=== PATIENT | female | born 1965 | race Two or more races ===

== ENCOUNTER → 2025-06-10 | Outpatient (CLI) | payer MEDICAID, SELFPAY ==
--- NOTE | 2025-06-10 08:45 | XR_ITS ---
Examination: Screening digital mammography, bilateral Computer aided detection 3-D breast Tomosynthesis, bilateral Date and time of exam: 06/10/2025, 8:19 AM Comparisons: December 2021 through April 2024 Indications: Screening, right breast pain x6 months Technique: Nonmagnified MLO, CC views of the breasts to been obtained, reconstructed from 3-D Tomosynthesis images. R2 computer aided detection program utilized for evaluation of suspicious masses and/or abnormal calcifications. 3-D Tomosynthesis images obtained. Technologist: Findings: The breasts are heterogeneously dense, which may obscure small masses. No evidence of abnormal masses or suspicious calcifications. Right postbiopsy marker clip. Impression:: No focal mammographic abnormality. Recommend diagnostic mammogram and ultrasound of the right breast with spot tomographic views of the area of pain. BI-RADS category 0: Incomplete assessment; need additional imaging evaluation
== END | disposition home or self-care (01) ==
LOC: CDIM 08:11
PROVIDERS: Referring Provider Family Medicine; Visit Provider Family Medicine
DX: Z12.31 Encounter for screening mammogram for malignant neoplasm of breast (principal); R92.8 Other abnormal and inconclusive findings on diagnostic imaging of breast
CPT/HCPCS: 77063; 77067

== ENCOUNTER 2025-06-28 03:24 | Emergency (ER) | payer MEDICAID, SELFPAY ==
[2025-06-28 03:25] VITALS: BP 175/98; PULSE 76; RESP 19; TEMP 36.6; O2SAT 100; BMI 27.8
--- NOTE | 2025-06-28 03:45 | XR_ITS ---
Examination: CT abdomen and pelvis without contrast. Coronal 3-D reconstructions. Sagittal 2-D reconstructions. Date and time of exam:June 28, 2025, 0401 hrs. Indications: Lower abdominal pain today, history kidney stones CTDI: vol (mGy): 8.66 DLP: (mGycm): 518 Technique: Axial images of the abdomen have been obtained, 3 mm slice thickness Intravenous contrast material has not been administered. Low dose protocols were performed. One or more of the following dose reduction techniques were used; automated exposure control, adjustment of the mA and/or KV according to patient size, use of iterative reconstruction technique. Findings: No focal liver or splenic lesions No gallstones No pancreatic or adrenal mass. No renal or ureteral calculi, no hydronephrosis Aorta normal size Normal appendix Mild acute diverticulitis junction descending colon and sigmoid colon No peridiverticular abscess Contracted urinary bladder with minimal urinary bladder wall thickening Impression: Mild acute diverticulitis junction descending colon and sigmoid colon, no peridiverticular abscess
--- NOTE | 2025-06-28 03:45 | PD.EDRME ---
Rapid Medical Screening Exam RME Arrival date/time: 06/28/25 03:24 This is a case of 60-year-old female with no medical history came in in the emergency room due to abdominal pain radiating to the flank pain with painful urination and blood in the urine today persistence of the symptoms this patient decided to start consulted in the emergency room Chief Complaint: Urogenital-Female Time Seen by Provider: 06/28/25 03:45 Vital signs: Vital Signs Temperature 97.8 F 06/28/25 03:25 Pulse Rate 76 06/28/25 03:25 Respiratory Rate 19 06/28/25 03:25 Blood Pressure 175/98 H 06/28/25 03:25 Pulse Oximetry (%) 100 06/28/25 03:25 Oxygen Delivery Method Room Air 06/28/25 03:25
[2025-06-28 04:06] LABS: Basophils # (Auto) 0.1 Thou/mm3 (0.0-0.2); Basophils % (Auto) 0 % (0-2.5); Eosinophils # (Auto) 0.1 Thou/mm3 (0.0-0.5); Eosinophils % (Auto) 0 % (0-10); Hematocrit 42.3 % (36.0-46.0); Hemoglobin 14.5 g/dL (12.0-16.0); Immature Granulocytes Auto 0.07 Thou/mm3 (0.00-0.00); Lymphocytes # (Auto) 2.6 Thou/mm3 (1.0-4.8); Lymphocytes % (Auto) 15 % (10-50); Mean Corpuscular HGB Conc 34.3 g/dl (31.0-37.0); Mean Corpuscular Hemoglobin 29.5 pg (25.0-35.0); Mean Corpuscular Volume 86 fL (80-100); Monocytes # (Auto) 1.3 Thou/mm3 (0.0-0.8); Monocytes % (Auto) 8 % (0-12); Neutrophils # (Auto) 13.0 Thou/mm3 (1.8-7.7); Neutrophils % (Auto) 76 % (37-80); Nucleated Red Blood Cell # 0.00 Thou/mm3 (0.00-0.00); Nucleated Red Blood Cell % 0 /100 WBC (0); Platelet Count 285 Thou/mm3 (140-440); RDW Standard Deviation 43.6 fL (36.4-46.3); Red Blood Count 4.91 Miln/mm3 (4.00-5.20); White Blood Count 17.1 Thou/mm3 (3.6-11.0)
[2025-06-28 04:25] LABS: Alanine Aminotransferase 14 U/L (10-49); Albumin, Serum 4.5 gm/dL (3.4-4.8); Albumin/Globulin Ratio 1.8 (1.2-2.2); Alkaline Phosphatase 120 U/L (46-116); Amylase 81 U/L (30-118); Anion Gap 8 (7-16); Aspartate Amino Transferase 15 U/L (0-34); BUN/Creatinine Ratio 11 Ratio (12-20); Bilirubin,Total 0.5 mg/dL (0.3-1.2); Blood Urea Nitrogen 9 mg/dL (9-23); Calcium 9.3 mg/dL (8.3-10.6); Calcium (Corrected) 9.3 mg/dL (8.5-10.1); Carbon Dioxide 27.7 mMol/L (20.0-31.0); Chloride 102 mMol/L (98-107); Creatinine (Component) 0.8 mg/dL (0.6-1.3); Estimated Creatinine Clearance 75.2 mL/min (>60); Globulin 2.5 gm/dL (2.3-3.5); Glucose 108 mg/dL (74-106); Osmolality,Calculated 275 (275-295); Potassium 4.0 mMol/L (3.4-5.1); Sodium 138 mMol/L (136-145); Total Protein 7.0 gm/dL (5.7-8.2); eGFR > 60 See Note
[2025-06-28 05:14] LABS: Collection Type, Urine Clean Catch; Squamous Epithelial Cell,Urine 0 /hpf (0-5)
[2025-06-28 05:23] LABS: Bilirubin,Urine Negative (Negative); Blood,Urine 3+ (Negative); Clarity,Urine Turbid (Clear/Hazy); Color,Urine Lt-Brown (Lt Yel-Yel); Glucose, Urine Negative (Negative); Ketones,Urine Negative (Negative); Leukocyte Esterase,Urine Positive (Negative); Nitrite,Urine Negative (Negative); PH,Urine 6.5 (5.0-7.0); Protein,Urine 1+ (Neg - Trace); RBC,Urine 15 /hpf (0-3); Specific Gravity,Urine 1.006 (1.001-1.035); Urobilinogen,Urine Negative mg/dL (0.0-1.0); WBC,Urine 568 /hpf (0-5)
--- NOTE | 2025-06-28 05:31 | PRELIM_ITS ---
CT scan of the abdomen and pelvis without intravenous contrast (axial sections with sagittal and coronal reformats) June 28, 2025 0401 hours Clinical History: Kidney stone. Comparison: None available at the time of this report. Findings: The lung bases are clear. The liver, gallbladder, pancreas, spleen, kidneys and adrenals are unremarkable on this noncontrast study. No evidence of bowel obstruction. The appendix is within normal limits. There is no mesenteric or retroperitoneal adenopathy. The urinary bladder is nondistended, limited ablation, probable thickening of the urinary bladder wall. There is no free fluid or free air. Focal thickening of the sigmoid colon associated with peripheral fat stranding, no perforation, no collections. Diverticulosis of the colon. Degenerative changes of the imaged portions of the spine. No acute fractures. Impression: Acute diverticulitis of the sigmoid colon. Possible cystitis. No evidence of kidney or ureteral stones. Report Electronically Signed By: Juancarlos Farrell 06/28/2025 5:30:07 AM [EST]
[2025-06-28 06:04] VITALS: BP 164/86; PULSE 76; RESP 17; O2SAT 96
[2025-06-28] MEDS: MORPHINE SULF INJ 4 MG/ML VIAL 2 MG IVP (06:42)
[2025-06-28] MEDS: RINGERS LACTATED 1000 ML 1,000 ML 999 ML IV (06:43)
--- NOTE | 2025-06-28 06:56 | EDNOTE_ITS ---
<Statement entered by Suzie Enciso MD - 06/28/25 15:15> I, Suzie Enciso MD, have reviewed the history, exam, and assessment of the patient. I have evaluated the patient independently and agree with the plan of care documented by [ ]. All diagnostic studies were reviewed and discussed. I confirm the diagnosis as documented by the Resident. I was present during the Medical Decision Making for this patient. The patient's plan of care was created between myself and the Resident and consistent with our discussion of the patient's case. ED Female Urogenital RME/HPI General Chief complaint: Urogenital-Female Stated complaint: URINATING BLOOD Time Seen by Provider: 06/28/25 03:45 Arrival date/time: 06/28/25 03:24 RME / HPI RME / HPI Narrative: 06/28/25 03:24 This is a case of 60-year-old female with no medical history came in in the emergency room due to abdominal pain radiating to the flank pain with painful urination and blood in the urine today persistence of the symptoms this patient decided to start consulted in the emergency room Ms Evangelista is a 60-year-old female with PMH of Hypothyroidism, Hypertension, Hyperlipidemia and diverticulitis in the past presented to [facility] [place] emergency department with a chief complaint of abdominal pain, patient describes her pain to be in the left mid and lower quadrant does report that the pain radiates down to her groin and also complains of some burning pain on micturition, she reported her pain started earlier in the day today and progressively got worse and she decided to come to emergency department for further evaluation. She does endorse constipation at times however reports that she takes rvaf-[id number] fiber for her symptoms. She denies any nausea, vomiting, diarrhea, headache, chest pain, shortness of breath, palpitations and dizziness. Related Data Home Medications ?Medication ?Instructions ?Recorded ?Confirmed simvastatin 10 mg tablet 20 mg PO HS High Cholesterol ##30 10/06/14 05/12/21 levothyroxine 88 mcg capsule 88 mcg PO QDAY 05/05/19 0 05/12/21 gabapentin 600 mg tablet 800 mg PO TID 05/10/2005/12 lisinopril 10 10 tab PO QAM 05/12/2105/12 mg-hydrochlorothiazide 12.5 mg tablet omeprazole 20 mg tablet,delayed 20 mg PO QAM 05/12/21 05/12/21 release Previous Rx's ?Medication ?Instructions ?Recorded azithromycin 250 mg tablet See Rx Instructions PO .COM PLEX #6 05/13/21 tabs ciprofloxacin HCl 500 mg tablet 500 mg PO BID #20 tabs 03/03/22 (Cipro) metronidazole 500 mg tablet 500 mg PO TID #21 tabs metronidazole 500 mg tablet 500 mg PO Q8H #30 tabs 12/06 ciprofloxacin HCl 500 mg tablet 500 mg PO BID #20 tabs 09/12/23 (Cipro) ciprofloxacin HCl 500 mg tablet 500 mg PO Q12H Acute 0 06/28/25 Diverticulitis 10 days #20 tabs metronidazole 500 mg tablet 500 mg PO Q8H Acute Divert iculitis 06/28/25 10 days #30 tabs Allergies Allergy/AdvReac Type Severity Reaction Status Date / Time naproxen (From Naprosyn) Allergy Gastrointestinal Verified 06/28/25 03:25 Upset Review of Systems Review of Systems Systems Reviewed: All systems reviewed, normal except as documented Past Medical History Past Medical History NEUROLOGIC: Positive Neurological Disorders and Migraine; Negative Seizures CARDIAC: Positive Angina, Hypercholesterolemia and Hypertension; Negative Cardiac Disorders or Congestive Heart Failure RESPIRATORY: Positive Asthma; Negative Chronic Obstructive Pulmonary Disease (COPD) GASTROINTESTINAL: Positive Gastrointestinal Disorders, Colitis, Hiatal Hernia and Gastroesophageal Reflux Disease GENITOURINARY: Negative Genitourinary Disorders or Renal Disease REPRODUCTIVE: Positive Previous Pregnancies MUSCULOSKELETAL: Positive Musculoskeletal Disorders and Arthritis ENDOCRINE: Positive Endocrine Disorders and Hypothyroidism; Negative Diabetes Mellitus Type 1 or Diabetes Mellitus Type 2 HEMATOLOGIC: Negative Blood Disorders or Sickle Cell Disease OTHER HISTORY: Positive Chicken Pox, Measles and Mumps; Negative Autoimmune Disease, Blood Transfusions, Blood Transfusion Reaction or Anesthesia Reactions Family History FAMILY HISTORY: Positive Family Respiratory Disorders, Family Cardiac Disorders and Family Cancer; Negative Family Psychiatric Problems, Family Gastrointestinal Problems, Family Surgery or Family Anesthesia Reaction Surgical History SURGICAL: Positive Lumpectomy, Hysterectomy and Section Social History SMOKING STATUS: Never smoker ED Exam Narrative Physical exam: Physical Exam General: Awake and in no acute distress. Conversational and non-toxic appearing. HEENT: Normocephalic, atraumatic, mucous membranes moist. Heart: Regular rate and rhythm, no murmurs. Lungs: Clear to auscultation with no wheezing or crackles. Abdomen: Soft, nondistended, significant tenderness left lower quadrant, positive bowel sounds. ?No guarding or rebound tenderness. Neurologic: Alert and oriented x3, no gross neurological deficit, and patient able to move all 4 extremities. Extremities: No edema. Skin: No rash or ecchymoses. Course Course Course Narrative: Workup done in triage, seen in room 06. Labs reviewed CBC: WBC 17.1, hemoglobin 14.5, platelet count 285, neutrophilia noted neutrophil 13,000. CMP: Sodium 138, potassium 4.0, chloride 102, bicarb 27.7, BUN 9, creatinine 0.8, GFR greater than 60, glucose 108, lactate 1.8, calcium 9.3, AST 15, ALT 14, alk phos 120, protein 7.0, albumin 4.5, amylase 81, Pro-Robbin 0.05. Urinalysis: Color light brown, turbid urine, protein 1+, blood 3+, RBC 15, WBC 568, leukocyte esterase positive, bacteria none Patient will be given morphine 2 mg x 1, 1 L LR bolus, IV Cipro and Flagyl x [address] abdomen pelvis without contrast ordered Results: Mild acute diverticulitis junction descending colon and sigmoid colon no peridiverticular abscess Reviewed patient's chart patient has been diagnosed with diverticulitis fourth time, did follow-up with a surgeon in the past. Patient's pain has improved patient is ambulating. Discussed with patient, patient agreeable to discharge home on Cipro and Flagyl, discharge instructions provided as below. Quality Measures none Orders Category Date Time Status CT abdomen pelvis wo con Stat Exams 06/28/25 03:45 Completed Amylase Stat Lab 06/28/25 03:55 Completed Blood Culture (Lab) Stat Lab 06/28/25 07:10 Received CBC Stat Lab 06/28/25 03:55 Completed Comprehensive Metabolic Panel Stat Lab 06/28/25 03:55 Completed Lactate (Lactic Acid) Stat Lab 06/28/25 07:19 Completed Procalcitonin Stat Lab 06/28/25 07:19 Completed Urinalysis Stat Lab 06/28/25 04:22 Completed Acetaminophen Tab [Tylenol ES Tab] Med 06/28/25 08:56 Discontinued 500 mg PO X1 ONE CIPROFLOXACIN/D5w 400 MG IVPB [Cipro Ivpb] Med 06/28/25 06:24 Discontinued 400 mg in 200 ml IV X1 Morphine* Inj Med 06/28/25 06:22 Discontinued 2 mg IVP X1 ONE Ringers Lactated 1000 ml [Lactated Ringers] 1,000 ml Med 06/28/25 06:23 Discontinued IV 999 mls/hr metroNIDAZOLE/NS 500 MG IVPB [Flagyl 500 mg IV] Med 06/28/25 06:24 Discontinued 500 mg in 100 ml IV X1 Vital Signs Vital signs: Vital Signs Temperature 97.8 F 06/28/25 03:25 Pulse Rate 76 06/28/25 03:25 Respiratory Rate 19 06/28/25 03:25 Blood Pressure 175/98 H 06/28/25 03:25 Pulse Oximetry (%) 100 06/28/25 03:25 Oxygen Delivery Method Room Air 06/28/25 03:25 Urogenital - Female MDM Narrative MDM Narrative:: 60-year-old female came in with a chief complaint of abdominal pain dysuria and hematuria #Acute colonic diverticulitis #Urinary tract infection Patient presented with chief complaint of abdominal pain, maddison hematuria and burning pain on micturition. CT abdomen pelvis showed mild acute diverticulitis junction descending colon and sigmoid colon no peridiverticular abscess White count elevated WBC 17.1 otherwise lactate negative vital stable Blood cultures ordered Patient established with general surgery outpatient, was seen by surgeon in the past. Patient will be discharged home Cipro and Flagyl for 10 days Patient to complete antibiotic treatment other discharge instructions as below, clear liquid diet advance as tolerated Patient provided information at bedside. Case discussed with Attending Physician Dr. Zaria Thomas MD Internal Medicine PGY-2 Disclaimer: This note was dictated by speech recognition. Minor errors in trans cription may be present due to voice recognition software. Patient data External records reviewed:: [facility] previous records Clinical information provided by:: patient Social determinants that could affect healthcare access:: none Patient has the following chronic illnesses:: As Above How is presenting disease/condition affected by chronic disease/condition?: no chronic disease Evaluation data The following diagnostics were reviewed and interpreted by me:: lab results and radiology exam(s) Lab and/or radiology exams considered but not ordered:: none Interpretation Summary: CBC: WBC 17.1, hemoglobin 14.5, platelet count 285, neutrophilia noted neutrophil 13,000. CMP: Sodium 138, potassium 4.0, chloride 102, bicarb 27.7, BUN 9, creatinine 0.8, GFR greater than 60, glucose 108, lactate 1.8, calcium 9.3, AST 15, ALT 14, alk phos 120, protein 7.0, albumin 4.5, amylase 81, Pro-Robbin 0.05. Urinalysis: Color light brown, turbid urine, protein 1+, blood 3+, RBC 15, WBC 568, leukocyte esterase positive, bacteria none Patient will be given morphine 2 mg x 1, 1 L LR bolus, IV Cipro and Flagyl x [address] abdomen pelvis without contrast ordered Results: Mild acute diverticulitis junction descending colon and sigmoid colon no peridiverticular abscess Medications / Prescriptions Medications or Prescriptions considered but not ordered:: None Medication administrations:: Medication Administration History Discontinued Medications Acetaminophen (Acetaminophen 500 Mg Tablet) 500 mg PO X1 ONE Stop: 06/28/25 08:57 Last Admin: 06/28/25 09:11 Dose: 500 mg Documented By: ED Lactated Ringer's (Lactated Ringers) 1,000 mls @ 999 mls/hr IV .Q1H1M ONE Stop: 06/28/25 07:23 Last Infusion: 06/28/25 07:44 Dose: Infused Documented By: Admin: 06/28/25 06:43 Dose: 999 mls/hr Documented By: [email or web address] Ciprofloxacin/Dextrose (Cipro Ivpb) 400 mg in 200 mls @ 200 mls/hr IV X1 ONE Stop: 06/28/25 07:23 Last Admin: 06/28/25 08:19 Dose: 200 mls/hr Documented By: ED Metronidazole (Flagyl 500 Mg Iv) 500 mg in 100 mls @ 100 mls/hr IV X1 ONE Stop: 06/28/25 07:23 Last Admin: 06/28/25 08:15 Dose: 100 mls/hr Documented By: ED Morphine Sulfate (Morphine Sulf Inj 4 Mg/Ml Vial) 2 mg IVP X1 ONE Stop: 06/28/25 06:23 Last Admin: 06/28/25 06:42 Dose: 2 mg Documented By: SANDRA As Above Consultations Consultation(s) initiated? (list below): No Diagnosis Urogenital Female Differential Diagnosis: urinary tract infection and other (Diverticulitis) Most likely diagnosis given after review of the tests above:: Diverticulitis and UTI Admission Indicated Admission indicated?: not indicated Admission Request Was there a request for admission?: No Disposition Plan Disposition Plan: Discharge Discharge Attestation Discharge Attestation: The patient and all family members were given an opportunity to ask questions and understood the discharge instructions. Discharge instructions specifically effects, indications for sooner follow up or return to the emergency department, and the expected course of current diagnosis. Patient condition: Stable Discharge Plan Plan Patient Disposition: HOME (Self Care) Patient condition on transfer: Stable Health Concerns: Instrucciones de giacomo para Diverticulitis Aguda 1. Recomendaciones diet?kayla: * L?quidos yunior: Siga dell dieta de l?quidos yunior camden las primeras 24-48 horas, dependiendo de c?mo se sienta y de las indicaciones de nunez m?dico. * Introducci?n gradual de alimentos s?lidos: Despu?s de dell dieta l?quida alka, puede ir introduciendo gradualmente dell dieta baja en fibra (por ejemplo, arroz hopper, pasta simple, huevos, verduras cocidas, etc.). * Evitar alimentos ricos en fibra: Hasta que se recupere completamente, evite los alimentos ricos en fibra yvette verduras crudas, granos integrales y nueces. 2. Medicamentos: * Antibi?ticos: Complete el tratamiento antibi?riri con ciprofloxacino dos veces al d?a y metronidazol ana veces al d?a camden 10 d?as. * Manejo del dolor: Puede usar analg?sicos de venta mulugeta yvette el paracetamol (Tylenol). Evite los AINEs (ibuprofeno, naproxeno), ya que pueden irritar el est?shanique. 3. Actividad: * [place]: Descanse camden la fase inicial de la recuperaci?n. * Limitar la actividad f?rambo: Evite levantar objetos pesados, hacer ejercicio intenso o cualquier actividad que pueda hacer esfuerzo en nunez abdomen camden al menos 1-2 semanas. Consulte con nunez m?dico de cabecera si necesita dell nota para el trabajo. * Retorno gradual a las actividades normales: Reanude kathie actividades normales lentamente a medida que lo tolere. 4. Prevenci?n de futuros episodios: * Aumente la ingesta de fibra: Dell vez que se sienta mejor, intente seguir dell dieta soha en fibra para prevenir futuros episodios (por ejemplo, granos inte grales, frutas, verduras, frijoles). * Mant?ngase hidratado: Sofia muchos l?quidos (agua, t?s herbales) para mantener nunez sistema digestivo funcionando adecuadamente. * Ejercicio: La actividad f?rambo regular puede ayudar a promover dell funci?n intestinal saludable y reducir el riesgo de futuros episodios. 5. Vuelva a la amira de emergencias si experimenta: * Boy en las heces. * Hinchaz?n excesiva o dolor abdominal chris. * Estre?imiento grave o incapacidad para evacuar. 6. Seguimiento: * Debe hacer un seguimiento con nunez m?dico de atenci?n primaria dentro de dell semana. * Obtenga dell referencia para un cirujano general en consulta ambulatoria. Prescriptions/Referrals Prescriptions/Med Rec: New ciprofloxacin HCl 500 mg tablet 500 mg PO Q12H 10 Days Qty: 20 0RF metronidazole 500 mg tablet 500 mg PO Q8H 10 Days Qty: 30 0RF No Action simvastatin 10 MG tablet 20 mg PO HS Qty: 30 levothyroxine 88 mcg Capsule 88 mcg PO QDAY gabapentin 600 mg Tablet 800 mg PO TID lisinopril-hydrochlorothiazide 10-12.5 mg tablet 10 tab PO QAM Patient Comments: TAKE ONE TABLET BY MOUTH EVERY DAY FOR HIGH BLOOD PRESSURE omeprazole 20 mg tablet,delayed release (DR/EC) 20 mg PO QAM Patient Comments: TAKE ONE TABLET BY MOUTH TWICE DAILY azithromycin 250 mg tablet See Rx Instructions .ROUTE .COMPLEX Qty: 6 0RF Rx Instructions: take 500 mg today (day 1), then 250 mg for 4 days (days 2-5) ciprofloxacin HCl [Cipro] 500 mg tablet 500 mg PO BID Qty: 20 0RF metronidazole 500 mg tablet 500 mg PO TID Qty: 21 0RF metronidazole 500 mg tablet 500 mg PO Q8H Qty: 30 0RF ciprofloxacin HCl [Cipro] 500 mg tablet 500 mg PO BID Qty: 20 0RF Referrals: Ihsan Nichols MD [Primary Care Provider, Family Practice] - In 1 week Problem List Clinical Impression: Diverticulitis Patient/Caregiver Discharge Instructions Discharge Activity: activity as tolerated Education Materials: ED Diverticulitis Print Language: Italian Stand Alone Forms: Ariella Award Info., Patient Portal Info Letter
--- NOTE | 2025-06-28 07:06 | PC.NURSE ---
Notified Dr. Enciso of no ordered, new order recieved to obtain b/c.
[2025-06-28 07:20] VITALS: BP 149/83; PULSE 72; RESP 17; TEMP 37; O2SAT 98
--- NOTE | 2025-06-28 07:20 | PC.NURSE ---
Pt. here from home to room 6, pt. states she has had bilateral lower abdominal pain X 1 day, pt. states she has pain with urination, pt. states it's very hot when she urinates. Pt. spouse is bedside. Pt. denies any vomiting.
--- NOTE | 2025-06-28 07:24 | PC.NURSE ---
Lab bedside drawing pt. blood cultures.
--- NOTE | 2025-06-28 07:30 | PC.NURSE ---
Pt. up, ambulates to RR, tolerates well.
[2025-06-28 07:35] LABS: Lactate (Lactic Acid) 1.8 mMol/L (0.4-2.0)
[2025-06-28] MEDS: metroNIDAZOLE/NS 500 MG IVPB 500 MG/100 ML BAG 100 MG IV (08:15)
[2025-06-28 08:16] LABS: Procalcitonin 0.05 ng/ml (0.0-0.49)
[2025-06-28] MEDS: CIPROFLOXACIN/D5w 400 MG IVPB 400 MG/200 ML BAG 200 MG IV (08:19)
[2025-06-28 09:09] VITALS: BP 136/78; PULSE 71; RESP 19; TEMP 36.8; O2SAT 97
[2025-06-28] MEDS: ACETAMINOPHEN 500 MG TABLET PO (09:11)
[2025-06-28 11:04] VITALS: BP 134/76; PULSE 87; RESP 18; TEMP 36.8; O2SAT 98
[2025-06-28 12:14] VITALS: BP 140/83; PULSE 68; RESP 18; TEMP 36.5; O2SAT 96
== END 2025-06-28 12:15 | disposition home or self-care (01) ==
PROVIDERS: Nurse Practitioner Family; Emergency Provider Emergency Medicine; PCP Family Medicine
DX: K57.32 Diverticulitis of large intestine without perforation or abscess without bleeding (principal); N39.0 Urinary tract infection, site not specified; E03.9 Hypothyroidism, unspecified; E78.5 Hyperlipidemia, unspecified; I10 Essential (primary) hypertension
CPT/HCPCS: 36415; 74176; 80053; 81001; 82150; 83605; 84145; 85025; 87040; 96361; 96365; 96375; 99283; J0744; J2270; J3490; J7120; A9270; J1836

== ENCOUNTER 2025-09-07 12:25 | Emergency (ER) | payer MEDICAID, SELFPAY ==
--- NOTE | 2025-09-07 12:33 | EKG_ITS ---
[facility] Test Date: 2025-09-07 Pat Name: PABLITO TRAN Department: Room: - Gender: Female Optimization Consultant: : 1965 Requested By: Key Cramer Order Number: [id number] Reading MD: Key Cramer Measurements Intervals [place] Rate: 86 P: 22 WA: 132 QRS: -20 QRSD: 75 T: 9 QT: 371 QTc: 446 Interpretive Statements SINUS RHYTHM MODERATE ST DEPRESSION [0.05+ mV ST DEPRESSION] Compared to ECG 05/12/2021 18:54:23 ST (T wave) deviation now present /store/S0/[id number].pdf
[2025-09-07 12:43] VITALS: BP 148/82; PULSE 80; RESP 18; TEMP 36.9; O2SAT 99; BMI 30.5
--- NOTE | 2025-09-07 13:06 | XR_ITS ---
EXAMINATION: XR chest 1V ORDERING PROVIDER: JOVITA Garcia HISTORY: chest pain TECHNIQUE: Single portable AP radiograph of the chest. COMPARISON: 05/12/2021 chest radiographs. 06/28/2025, CT abdomen pelvis. FINDINGS: Lines and Tubes: None. Lungs: No consolidation. Linear markings lingula, similar to prior, probably scarring. Pleura: No pneumothorax or pleural effusion. Cardiomediastinal Silhouette: Normal size. Mildly tortuous thoracic aorta. Calcifications aortic arch. Soft Tissues/Bones: Unremarkable for age. IMPRESSION: No acute pulmonary findings.
--- NOTE | 2025-09-07 13:07 | PD.EDRME ---
Rapid Medical Screening Exam RME Arrival date/time: 09/07/25 12:25 This is a case of 60-year-old female with history of hypertension came in in the emergency room due to chest pain and shortness of breath for 3 days worsening symptoms this patient decided psych consulted in the emergency room Chief Complaint: Chest Pain Time Seen by Provider: 09/07/25 12:35 Vital signs: Vital Signs Temperature 98.5 F 09/07/25 12:43 Pulse Rate 80 09/07/25 12:43 Respiratory Rate 18 09/07/25 12:43 Blood Pressure 148/82 H 09/07/25 12:43 Pulse Oximetry (%) 99 09/07/25 12:43 Oxygen Delivery Method Room Air 09/07/25 12:43 Exam: Normal rate regular rhythm no murmur lungs sound is clear Clinical Impression: Chest pain
[2025-09-07 13:46] LABS: Collection Type, Urine Clean Catch; Squamous Epithelial Cell,Urine 0 /hpf (0-5)
[2025-09-07 14:00] LABS: Basophils # (Auto) 0.1 Thou/mm3 (0.0-0.2); Basophils % (Auto) 1 % (0-2.5); Eosinophils # (Auto) 0.1 Thou/mm3 (0.0-0.5); Eosinophils % (Auto) 1 % (0-10); Hematocrit 44.1 % (36.0-46.0); Hemoglobin 14.9 g/dL (12.0-16.0); Immature Granulocytes Auto 0.05 Thou/mm3 (0.00-0.00); Lymphocytes # (Auto) 2.7 Thou/mm3 (1.0-4.8); Lymphocytes % (Auto) 21 % (10-50); Mean Corpuscular HGB Conc 33.8 g/dl (31.0-37.0); Mean Corpuscular Hemoglobin 29.2 pg (25.0-35.0); Mean Corpuscular Volume 86 fL (80-100); Monocytes # (Auto) 1.0 Thou/mm3 (0.0-0.8); Monocytes % (Auto) 7 % (0-12); Neutrophils # (Auto) 9.1 Thou/mm3 (1.8-7.7); Neutrophils % (Auto) 70 % (37-80); Nucleated Red Blood Cell # 0.00 Thou/mm3 (0.00-0.00); Nucleated Red Blood Cell % 0 /100 WBC (0); Platelet Count 274 Thou/mm3 (140-440); RDW Standard Deviation 46.9 fL (36.4-46.3); Red Blood Count 5.11 Miln/mm3 (4.00-5.20); White Blood Count 12.9 Thou/mm3 (3.6-11.0)
[2025-09-07 14:06] LABS: Bilirubin,Urine Negative (Negative); Blood,Urine Negative (Negative); Clarity,Urine Clear (Clear/Hazy); Color,Urine Colorless (Lt Yel-Yel); Glucose, Urine Negative (Negative); Ketones,Urine Negative (Negative); Leukocyte Esterase,Urine Negative (Negative); Nitrite,Urine Negative (Negative); PH,Urine 6.5 (5.0-7.0); Protein,Urine Negative (Neg - Trace); RBC,Urine 1 /hpf (0-3); Specific Gravity,Urine 1.003 (1.001-1.035); Urobilinogen,Urine Negative mg/dL (0.0-1.0); WBC,Urine 1 /hpf (0-5)
[2025-09-07 14:08] LABS: B-Type Natriuretic Peptide 73 pg/mL (0-100)
[2025-09-07 14:10] LABS: Alanine Aminotransferase 18 U/L (10-49); Albumin, Serum 4.2 gm/dL (3.4-4.8); Albumin/Globulin Ratio 1.7 (1.2-2.2); Alkaline Phosphatase 93 U/L (46-116); Anion Gap 9 (7-16); Aspartate Amino Transferase 16 U/L (0-34); BUN/Creatinine Ratio 8 Ratio (12-20); Bilirubin,Total 0.4 mg/dL (0.3-1.2); Blood Urea Nitrogen 7 mg/dL (9-23); Calcium 9.0 mg/dL (8.3-10.6); Calcium (Corrected) 9.0 mg/dL (8.5-10.1); Carbon Dioxide 28.4 mMol/L (20.0-31.0); Chloride 104 mMol/L (98-107); Creatinine (Component) 0.9 mg/dL (0.6-1.3); Estimated Creatinine Clearance 67.5 mL/min (>60); Globulin 2.5 gm/dL (2.3-3.5); Glucose 82 mg/dL (74-106); Osmolality,Calculated 278 (275-295); Potassium 3.7 mMol/L (3.4-5.1); Sodium 141 mMol/L (136-145); Total Protein 6.7 gm/dL (5.7-8.2); Troponin I < 0.020 ng/mL (0.0-0.045); eGFR > 60 See Note
--- NOTE | 2025-09-07 14:17 | PC.NURSE ---
STAFF CALLED PT IN LOBBY AND OUTSIDE WITH NO ANSWER. FIRST CALL.
[2025-09-07 14:30] LABS: D-Dimer < 250 ng/mL (<600)
--- NOTE | 2025-09-07 14:50 | PC.NURSE ---
STAFF CALLED PT IN LOBBY AND OUTSIDE WITH NO ANSWER. SECOND CALL.
--- NOTE | 2025-09-07 15:36 | PD.EDCHEST ---
ED Chest Pain RME/HPI General Chief Complaint: Chest Pain Stated Complaint: L) CHEST TIGHTNESS, SOB X 2 HRS Time Seen by Provider: 09/07/25 12:35 Arrival date/time: 09/07/25 12:25 RME / HPI RME / HPI narrative: 09/07/25 12:25 This is a case of 60-year-old female with history of hypertension came in in the emergency room due to chest pain and shortness of breath for 3 days worsening symptoms this patient decided psych consulted in the emergency room Exam: Normal rate regular rhythm no murmur lungs sound is clear Impression: Chest pain Related Data Home Medications ?Medication ?Instructions ?Recorded ?Confirmed simvastatin 10 mg tablet 20 mg PO HS High Cholesterol ##30 10/06/14 05/12/21 levothyroxine 88 mcg capsule 88 mcg PO QDAY 05/05/19 05/12/21 gabapentin 600 mg tablet 800 mg PO TID 05/10/20 05/12/21 lisinopril 10 10 tab PO QAM 05/12/21 05/12/21 mg-hydrochlorothiazide 12.5 mg tablet omeprazole 20 mg tablet,delayed 20 mg PO QAM 05/12/21 05/12/21 release Previous Rx's ?Medication ?Instructions ?Recorded azithromycin 250 mg tablet See Rx Instructions PO .COMPLEX #6 05/13/21 tabs ciprofloxacin HCl 500 mg tablet 500 mg PO BID #20 tabs 03/03/22 (Cipro) metronidazole 500 mg tablet 500 mg PO TID #21 tabs 03/03/22 metronidazole 500 mg tablet 500 mg PO Q8H #30 tabs 04/15/22 ciprofloxacin HCl 500 mg tablet 500 mg PO BID #20 tabs 09/12/23 (Cipro) Allergies Allergy/AdvReac Type Severity Reaction Status Date / Time naproxen (From Naprosyn) Allergy Gastrointestinal Verified 09/07/25 12:32 Upset Course Orders Category Date Time Status EKG (ED ONLY) *Do not use* NOW Care 09/07/25 12:33 Completed EKG (ED Only) Stat Exams 09/07/25 12:33 Draft XR chest 1V Stat Exams 09/07/25 13:06 Completed BNP [B-Type Natriuretic Peptide] Stat Lab 09/07/25 13:18 Completed CBC Stat Lab 09/07/25 13:18 Completed Comprehensive Metabolic Panel Stat Lab 09/07/25 13:18 Completed D-Dimer Stat Lab 09/07/25 13:18 Completed Troponin I Stat Lab 09/07/25 13:18 Completed Urinalysis Stat Lab 09/07/25 13:25 Completed Vital Signs Vital signs: Vital Signs Temperature 98.5 F 09/07/25 12:43 Pulse Rate 80 09/07/25 12:43 Respiratory Rate 18 09/07/25 12:43 Blood Pressure 148/82 H 09/07/25 12:43 Pulse Oximetry (%) 99 09/07/25 12:43 Oxygen Delivery Method Room Air 09/07/25 12:43 Chest Pain MDM Narrative MDM Narrative:: Labs with leukocytosis 12.9, no left shift, no acute metabolic disturbance, troponin not elevated urinalysis without evidence of infection. Chest x-ray unremarkable. EKG performed today at 1245 interpreted by me, notable for sinus rhythm, heart rate 86, normal intervals, nonspecific T wave changes, not a cardiac alert. Discharge Plan Prescriptions/Referrals Prescriptions/Med Rec: No Action simvastatin 10 MG tablet 20 mg PO HS Qty: 30 levothyroxine 88 mcg Capsule 88 mcg PO QDAY gabapentin 600 mg Tablet 800 mg PO TID lisinopril-hydrochlorothiazide 10-12.5 mg tablet 10 tab PO QAM Patient Comments: TAKE ONE TABLET BY MOUTH EVERY DAY FOR HIGH BLOOD PRESSURE omeprazole 20 mg tablet,delayed release (DR/EC) 20 mg PO QAM Patient Comments: TAKE ONE TABLET BY MOUTH TWICE DAILY azithromycin 250 mg tablet See Rx Instructions .ROUTE .COMPLEX Qty: 6 0RF Rx Instructions: take 500 mg today (day 1), then 250 mg for 4 days (days 2-5) ciprofloxacin HCl [Cipro] 500 mg tablet 500 mg PO BID Qty: 20 0RF metronidazole 500 mg tablet 500 mg PO TID Qty: 21 0RF metronidazole 500 mg tablet 500 mg PO Q8H Qty: 30 0RF ciprofloxacin HCl [Cipro] 500 mg tablet 500 mg PO BID Qty: 20 0RF Referrals: Ihsan Nichols MD [Primary Care Provider, Family Practice] - In 1 week Patient/Caregiver Discharge Instructions Print Language: Polish
--- NOTE | 2025-09-07 17:15 | PC.NURSE ---
STAFF CALLED PT IN LOBBY AND OUTSIDE WITH NO ANSWER. THIRD CALL.
== END 2025-09-07 17:15 | disposition left against medical advice (07) ==
LOC: SERX 13:47
PROVIDERS: Nurse Practitioner Family; Emergency Provider Emergency Medicine; PCP Family Medicine
DX: R07.9 Chest pain, unspecified (principal); R06.02 Shortness of breath; R94.31 Abnormal electrocardiogram [ECG] [EKG]; I10 Essential (primary) hypertension; Z53.29 Procedure and treatment not carried out because of patient's decision for other reasons
CPT/HCPCS: 36415; 71045; 80053; 81001; 83880; 84484; 85025; 85379; 93005; 99283

== ENCOUNTER → 2025-09-25 | Outpatient (CLI) | payer MEDICAID, SELFPAY ==
--- NOTE | 2025-09-25 | XR_ITS ---
EXAMINATION: Bilateral wrist 6 views TECHNIQUE: AP oblique lateral each wrist total 6 views Date and time: September 25, 2025, 1327 hours INDICATION: Bilateral wrist pain beginning 1 year ago. FINDINGS: Minimal osteoarthritis radiocarpal navicular trapezium and first carpometacarpal joints bilaterally No evidence of arthritis. No fractures No foreign bodies No avascular necrosis IMPRESSION: Minimal bilateral osteoarthritis
--- NOTE | 2025-09-25 | XR_ITS ---
Examination: Bilateral hands, 6 views. Technique: AP, Oblique, Lateral each hand total 6 views Date and time of exam: September 25, 2025, 1330 hours INDICATIONS: Hand and wrist pain beginning 1 year ago. FINDINGS: Mild to moderate juxta articular bone demineralization. No fracture or dislocation involving either hand. No erosive or other significant arthritic change involving either hand No cortical bone erosions Tiny opacity in the soft tissue adjacent to the base of the middle phalanx left fourth digit, 1 mm, clinical correlation advised Impression: No erosive or other significant arthritic change involving either hand
== END | disposition home or self-care (01) ==
PROVIDERS: PCP Nurse Practitioner Gerontology; Referring Provider Nurse Practitioner Gerontology; Visit Provider Nurse Practitioner Gerontology
DX: M79.642 Pain in left hand (principal); M79.641 Pain in right hand; M19.032 Primary osteoarthritis, left wrist; M19.031 Primary osteoarthritis, right wrist
CPT/HCPCS: 73110; 73130